=== PATIENT | female | born 1960 | race Caucasian/White ===

== ENCOUNTER → 2023-12-12 | Outpatient (CLI) | payer BC ==
--- NOTE | 2023-12-12 12:51 | CA ---
Stress Echo Report Lubna Carmen Age: 63 Gender: F : 1960 Exam Date: 12/12/2023 09:40 Exam Location: [place] Stress Ht (in): 62 Wt (lb): 162 Ordering Physician: Savi Mcmillan DO Referring Physician: Sandi Torres [facility] Jewelry Setter: Amrita Azevedo [facility] Technologist Procedure CPT: Indication: R07.89 chest pain ICD-9 Codes: Rhythm: Patient History: Cardiac Medications: LISINOPRIL Medications in past 24 hours: Contrast: N/A Stress Results Protocol: Geronimo Total dose(mL): Exercise Duration (min:sec): 7:[address] Depression (mm): Angina Score: Franz Score: METS: 9.1 Resting HR: 95 Resting BP: 109 / 54 Peak HR: 148 Peak BP: 178 / 109 Max Predicted HR: 157 94 % Max Predicted HR Target HR: 133 Double Product: 80233 Stress Summary: BP Response: Reason for Termination: Reached target heart rate or work-load Cardiac Symptoms: Test terminated after reaching target heart rate (85% max predicted) ECG Analysis Resting ECG: Stress ECG: Arrhythmia: Echo Analysis Resting Echo: Peak Echo Analysis: MEASUREMENTS (Male/Female) Normal Values CONCLUSIONS Good exercise tolerance Normal EKG and echocardiogram in the response to exercise Dr. Jimy Carolina MD (Electronically Signed) Final Date: 12 December 2023 12:50
== END | disposition home or self-care (01) ==
LOC: RADNMMAIN 08:51
PROVIDERS: ATTEND Family Medicine
DX: R07.89 Other chest pain (principal)
CPT/HCPCS: 93351

== ENCOUNTER 2023-12-18 10:04 | Day surgery (SDC) | payer BC ==
[2023-12-13 14:18] VITALS: BMI 29.6
[~2023-12-18 10:04] MED LIST: LACTATED RINGERS 1,000 ML IV SCH; LIDOCAINE 1% (10MG/ML) FOR IV START INTRADERMA PRN
[2023-12-18 11:12] VITALS: RESP 16; TEMP 98.9
[2023-12-18] MEDS ORDERED: PROPOFOL 10 MG/ML 20 ML VIAL IV ONE (11:34)
--- NOTE | 2023-12-18 11:49 | P.PCN ---
Date of Procedure: 12/18/23 Procedure(s) Performed: BRIEF HISTORY: Patient is a 63-year-old pleasant white female scheduled for an elective colonoscopy as a part of screening for colorectal neoplasia PROCEDURE PERFORMED: Colonoscopy. PREOPERATIVE DIAGNOSIS: Screening for colon cancer. . IV sedation per Anesthesia. PROCEDURE: After informed consent was obtained, the patient, was brought into the endoscopy unit. IV sedation was administered by Anesthesia under continuous monitoring. Digital rectal examination was normal. Initially the Olympus CF-160 flexible video colonoscope was then inserted in the rectum, gradually advanced into the cecum without any difficulty. Careful examination was performed as the scope was gradually being withdrawn. Ileocecal valve and the appendiceal orifice were visualized and appeared normal. Prep was excellent. Mucosa of the cecum, ascending colon, transverse colon, descending colon, sigmoid colon, and rectum appeared normal. Retroflexion was performed in the rectum and no lesions were seen. The patient tolerated the procedure well. IMPRESSION: Normal-appearing colon from rectum to cecum with no evidence of colorectal neoplasia Scattered sigmoid diverticulosis. RECOMMENDATIONS: Findings of this examination were discussed with the patient as well as her family. She was advised to have a repeat scanning colonoscopy in 10 years..
[2023-12-18 12:12] VITALS: BP 114/86; PULSE 92
== END 2023-12-18 12:31 | disposition home or self-care (01) ==
LOC: ORWHC2ENDO 10:04
PROVIDERS: ATTEND Internal Medicine Gastroenterology
DX: Z12.11 Encounter for screening for malignant neoplasm of colon (principal); K57.30 Diverticulosis of large intestine without perforation or abscess without bleeding; I10 Essential (primary) hypertension; Z79.899 Other long term (current) drug therapy; Z87.891 Personal history of nicotine dependence; Z88.5 Allergy status to narcotic agent
CPT/HCPCS: 45378; J2704